=== PATIENT | male | born 1975 | race Two or more races ===

== ENCOUNTER 2016-06-21 09:01 | Emergency (ER) | payer OTHER ==
[2016-06-21 09:05] VITALS: BP 142/79; BMI 33.7
[2016-06-21 09:38] LABS: BILIRUBIN,URINE NEGATIVE (NEGATIVE); BLOOD/HEMOGLOBIN,URINE 1+ (NEGATIVE); GLUCOSE, URINE 4+ (NEGATIVE); KETONES,URINE NEGATIVE (NEGATIVE); LEUKOCYTE ESTERASE ,URINE NEGATIVE (NEGATIVE); NITRITES,URINE NEGATIVE (NEGATIVE); PROTEIN,URINE 2+ (NEGATIVE); UROBILINOGEN,URINE NORMAL (NORMAL)
--- NOTE | 2016-06-21 09:46 | DR.GENAD ---
HPI - PCP Primary Care Physician: nfd - Complaint/Symptoms Chief Complaint Doctors Comments: Patient was seen 02/23 for abdominal pain for seven months, diagnosed with multiple bilateral pulmonary nodules that were similar in size comparet ot prior CT on 01/20/13; diagnosed with hepatic steatosis. He was seen in [place] for similar problems when referred by [place] physician; he was given some medication for the nodules and has had no follow up. Patient presents today with c/o right flank pain radiating to right inguinal canal. This has been persistant for three months. Chief Complaint:: patient stated his right side has been hurting for 3 months.last week it started huring but it hasnt stopped hurting. - Source History Provided: Family Member - Mode of Arrival Mode of Arrival: Ambulatory - Timing Onset of Chief Complaint: 06/14/16 PMH - PMH Past Medical History: No Past Surgical History: No - Family History History of Family Medical Conditions: No - Social History Does patient currently use any type of tobacco product: No Have you used tobacco products in the last 12 months: No Type of Tobacco Use: None Does any household member use tobacco: No Alcohol Use: None Do you use any recreational Drugs:: No Lives With: Family - infectious screening In the last 2 months have you had wt loss of >10#?: NO Have you had fever, night sweats or hemotysis?: No Have you traveled outside the country in the last 6 months?: No Isolation: Standard ROS - Review of Systems Eyes: No Symptoms Reported ENTM: No Symptoms Reported Respiratoy: No Symptoms Reported Cardiovascular: No Symptoms Reported Gastrointestinal/Abdominal: No Symptoms Reported Genitourinary: Pain (with sexual encounter) Neurological: No Symptoms Reported Musculoskeletal: No Symptoms Reported Integumentary: No Symptoms Reported Hematologic/Lymphatic: No Symptoms Reported Endocrine: No Symptoms Reported Psychiatric: No Symptoms Reported All Other Systems: Reviewed and Negative PE - Vital Signs Vitals: Temperature 98.6 F Pulse Rate 71 Respiratory Rate 16 Blood Pressure 142/79 O2 Sat by Pulse Oximetry 98 - General Limitations: No Limitations General Appearance: Alert, In No Apparent Distress - Head Head Exam: Normal Inspection, Atraumatic - Eyes Eye exam: Normal Appearance, PERRL, EOMI - ENT ENT Exam: Normal Exam External Ear Exam: Normal External Inspection TM/Canal Exam: Bilateral Normal Nose Exam: Normal Nose Exam Mouth Exam: Normal Inspection Throat Exam: Normal Inspection - Neck Neck Exam: Normal Inspection - Chest Chest Inspection: Normal Inspection - Respiratory Respiratory Exam: Normal Lung Sounds Bilat Respiratory Exam: Bilateral Clear to Auscultation - Cardiovascular Cardiovascular Exam: Regular Rate - Abdominal Exam Abdominal Exam: Normal Inspection Abdominal Tenderness: negative: RUQ, RLQ, LUQ, LLQ, Epigastrium, Suprapubic, Diffuse, Mild, Moderate, Severe, Other - Extremities Extremities Exam: Normal Inspection - Back Back Exam: Normal Inspection - Neurologic Neurological Exam: Alert, Oriented X3, CN II-XII Intact - Psychiatric Psychiatric Exam: Normal Affect - Skin Skin Exam: Warm, Dry, Intact, Normal Color - Other Exam Other Exam: Scrotum: right tender with elevation, denies penile discharge,scrotal pain with ejaculation ROR - Labs Reviewed Laboratory Results Reviewed?: Yes (glucose elevated) Result Diagrams: 06/21/16 09:40 06/21/16 09:40 Laboratory: WBC 7.5 X10^3/uL (3.6-10.0) 06/21/16 09:40 RBC 5.36 X10^6/uL (4.7-6.0) 06/21/16 09:40 Hgb 15.8 g/dL (13.5-18.0) 06/21/16 09:40 Hct 45.4 % (42.0-54.0) 06/21/16 09:40 MCV 84.6 fL (80.0-100.0) 06/21/16 09:40 MCH 29.5 pg (27.0-34.0) 06/21/16 09:40 MCHC 34.8 g/dL (33.0-35.0) 06/21/16 09:40 RDW 12.5 % (11.6-16.5) 06/21/16 09:40 Plt Count 249 X10^3/uL (150.0-450.0) 06/21/16 09:40 MPV 7.5 fL (7.4-11.0) 06/21/16 09:40 Neut % 52.2 % (42.0-75.0) 06/21/16 09:40 Lymph % 36.6 % (21.0-51.0) 06/21/16 09:40 [place] % 8.1 % (0.0-13.0) 06/21/16 09:40 Eos % 2.9 % (0.9-2.9) 06/21/16 09:40 Baso % 0.2 % (0.2-1.0) 06/21/16 09:40 Neut # 3.9 x10^3/uL (2.2-4.8) 06/21/16 09:40 Lymph # 2.7 X10^3/uL (1.3-2.9) 06/21/16 09:40 [place] # 0.6 x10^3/uL (0.3-0.8) 06/21/16 09:40 Eos # 0.2 x10^3/uL (0.0-0.2) 06/21/16 09:40 Baso # 0.0 X10^3/uL (0.0-0.1) 06/21/16 09:40 Absolute Nucleated RBC 0.1 /100WBC 06/21/16 09:40 Sodium 140 mmol/L (136-145) 06/21/16 09:40 Corrected Sodium 143 mmol/L (136-145) 06/21/16 09:40 Potassium 4.1 mmol/L (3.5-5.1) 06/21/16 09:40 Chloride 104 mmol/L (98-107) 06/21/16 09:40 Carbon Dioxide 27.8 mmol/L (21-32) 06/21/16 09:40 BUN 15 mg/dL (7-18) 06/21/16 09:40 Creatinine 0.79 mg/dL (0.70-1.30) 06/21/16 09:40 Est GFR (MDRD) Af Amer > 60 (>60) 06/21/16 09:40 Est GFR (MDRD) Non-Af > 60 (>60) 06/21/16 09:40 Glucose 230 mg/dL (65-99) H 06/21/16 09:40 Calcium 8.7 mg/dL (8.5-10.1) 06/21/16 09:40 Corrected Calcium TNP 06/21/16 09:40 Total Bilirubin 0.30 mg/dL (0.2-1.0) 06/21/16 09:40 AST 18 Units/L (15-37) 06/21/16 09:40 ALT 47 Units/L (12-78) 06/21/16 09:40 Alkaline Phosphatase 104 Units/L (46-116) 06/21/16 09:40 C-Reactive Protein 1.90 mg/L (0-3.0) 06/21/16 09:40 Total Protein 7.5 g/dL (6.4-8.2) 06/21/16 09:40 Albumin 3.6 g/dL (3.4-5.0) 06/21/16 09:40 Globulin 3.9 g/dL (2.5-4.5) 06/21/16 09:40 Albumin/Globulin Ratio 0.9 Ratio (1.1-2.1) L 06/21/16 09:40 Specimen Type Clean catch urine 06/21/16 09:17 Urine Color Yellow (YELLOW) 06/21/16 09:17 Urine Appearance Clear (CLEAR) 06/21/16 09:17 Urine pH 6.0 (5.0 - 8.0) 06/21/16 09:17 Ur Specific [place] 1.015 (1.000-1.030) 06/21/16 09:17 Urine Protein 2+ (NEGATIVE) 06/21/16 09:17 Urine Glucose (UA) 4+ (NEGATIVE) 06/21/16 09:17 Urine Ketones Negative (NEGATIVE) 06/21/16 09:17 Urine Occult Blood 1+ (NEGATIVE) 06/21/16 09:17 Urine Nitrite Negative (NEGATIVE) 06/21/16 09:17 Urine Bilirubin Negative (NEGATIVE) 06/21/16 09:17 Urine Urobilinogen Normal (NORMAL) 06/21/16 09:17 Ur Leukocyte Esterase Negative (NEGATIVE) 06/21/16 09:17 Urine RBC Rare /HPF (NEGATIVE) 06/21/16 09:17 Urine WBC None seen /HPF (NEGATIVE) 06/21/16 09:17 Ur Squamous Epith Cells Few /HPF (NEGATIVE) 06/21/16 09:17 Urine Bacteria Negative /HPF (NEGATIVE) 06/21/16 09:17 Ur Culture Indicated? No/not indicated 06/21/16 09:17 - Diagnosis Discharge Problem: Epididymitis - Discharge Plan Condition: Stable - Follow ups/Referrals Follow ups/Referrals: NFD,None [Primary Care Provider] - 3 days - Instructions
[2016-06-21 09:50] LABS: APPEARANCE,URINE CLEAR (CLEAR); BACTERIA,URINE NEGATIVE /HPF (NEGATIVE); COLOR,URINE YELLOW (YELLOW); RBC,URINE RARE /HPF (NEGATIVE); SQUAMOUS EPITHELIAL CELL,UR FEW /HPF (NEGATIVE)
[2016-06-21 10:13] LABS: BASOPHILS % (AUTO) 0.2 % (0.2-1.0); EOSINOPHILS # (AUTO) 0.2 x10^3/uL (0.0-0.2); EOSINOPHILS % (AUTO) 2.9 % (0.9-2.9); HEMATOCRIT 45.4 % (42.0-54.0); HEMOGLOBIN 15.8 g/dL (13.5-18.0); LYMPHOCYTES # (AUTO) 2.7 X10^3/uL (1.3-2.9); LYMPHOCYTES % (AUTO) 36.6 % (21.0-51.0); MEAN CORPUSCULAR HEMOGLOBIN 29.5 pg (27.0-34.0); MEAN CORPUSCULAR HGB CONC 34.8 g/dL (33.0-35.0); MEAN CORPUSCULAR VOLUME 84.6 fL (80.0-100.0); MEAN PLATELET VOLUME 7.5 fL (7.4-11.0); MONOCYTES # (AUTO) 0.6 x10^3/uL (0.3-0.8); MONOCYTES % (AUTO) 8.1 % (0.0-13.0); NEUTROPHILS # (AUTO) 3.9 x10^3/uL (2.2-4.8); NEUTROPHILS % (AUTO) 52.2 % (42.0-75.0); PLATELET COUNT 249 X10^3/uL (150.0-450.0); RED BLOOD COUNT 5.36 X10^6/uL (4.7-6.0); RED CELL DISTRIBUTION WIDTH 12.5 % (11.6-16.5); WHITE BLOOD COUNT 7.5 X10^3/uL (3.6-10.0)
[2016-06-21 10:16] LABS: ALANINE AMINOTRANSFERASE 47 Units/L (12-78); ALBUMIN 3.6 g/dL (3.4-5.0); ALKALINE PHOSPHATASE 104 Units/L (46-116); ASPARTATE AMINO TRANSFERASE 18 Units/L (15-37); BLOOD UREA NITROGEN 15 mg/dL (7-18); CALCIUM 8.7 mg/dL (8.5-10.1); CARBON DIOXIDE 27.8 mmol/L (21-32); CHLORIDE 104 mmol/L (98-107); COR NA(FOR HYPERGLY) 143 mmol/L (136-145); CREATININE 0.79 mg/dL (0.70-1.30); GLUCOSE 230 mg/dL (65-99); SODIUM 140 mmol/L (136-145); TOTAL PROTEIN 7.5 g/dL (6.4-8.2); eGFR BLACK RACES > 60 (>60); eGFR NON BLACK RACES > 60 (>60)
[2016-06-21] MEDS ORDERED: ROCEPHIN VIAL 250 MG IM ONE (10:37)
[2016-06-21] MEDS ORDERED: ROCEPHIN VIAL 250 MG ONE (10:40)
== END 2016-06-21 10:52 | disposition home or self-care (01) ==
LOC: ER 09:07
DX: N45.1 Epididymitis (principal)
CPT/HCPCS: 36415; 80053; 81001; 85025; 86140; 96372; 99282; J0696